=== PATIENT | male | born 1970 | race Caucasian/White ===

== ENCOUNTER 2023-02-13 10:32 | Outpatient (CLI) | payer SELFPAY | END 2023-02-13 10:33 | disposition home or self-care (01) | PROVIDERS: Visit Provider Internal Medicine | DX: S09.90XA Unspecified injury of head, initial encounter (principal); V47.1XXA Car passenger injured in collision with fixed or stationary object in nontraffic accident, initial encounter; Y92.481 Parking lot as the place of occurrence of the external cause | CPT/HCPCS: A0998 ==

== ENCOUNTER 2023-02-18 10:43 | Outpatient (CLI) | payer SELFPAY | END 2023-02-18 10:44 | disposition home or self-care (01) | LOC: AMB 02-20 06:33 | PROVIDERS: Visit Provider Family Medicine | DX: R42 Dizziness and giddiness (principal); G47.00 Insomnia, unspecified | CPT/HCPCS: A0425; A0429 ==

== ENCOUNTER 2023-02-18 11:03 | Emergency (ER) | payer SELFPAY ==
[2023-02-18] VITALS (12 sets, daily range): BP systolic 132–143; BP diastolic 87–99; PULSE 86–106; RESP 16; TEMP 36.7; O2SAT 97–99; BMI 23.1
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
[2023-02-18 11:45] LABS: Lactate* 2.6 mmol/L (0.5-1.9)
[2023-02-18 11:47] LABS: Basophils Absolute Auto 0.03 K/uL (0.00-0.30); Basophils Percent Auto 0.3 % (0.0-3.0); Eosinophils Absolute Auto 0.04 K/uL (0.00-0.50); Eosinophils Percent Auto 0.4 % (0.0-7.0); Hematocrit 42.1 % (37.0-53.0); Hemoglobin* 14.5 gm/dL (13.5-17.5); Immature Granulocytes Abs Auto 0.03 K/uL (0.00-0.30); Immature Granulocytes Pct Auto 0.3 %; Lymphocytes Percent Auto 15.4 % (20-44); Mean Corpuscular HGB Conc 34 gm/dL (32-36); Mean Corpuscular Hemoglobin 35 pg (26-34); Mean Corpuscular Volume 102 fL (80-100); Monocytes Percent Auto 11.8 % (0.0-11.0); Neutrophils Absolute Auto 7.18 K/uL (1.7-7.0); Neutrophils Percent Auto 71.8 % (42.0-72.0); Platelet Count* 84 K/uL (140-440); RDW Coefficient of Variation % 13.1 % (11.5-15.5); Red Blood Count 4.14 m/uL (4.30-5.90)
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
[2023-02-18 11:50] LABS: Slide Review Reflex No
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
[2023-02-18] MEDS: 0.9 % SODIUM CHLORIDE 1000 ml 1,000 ML IV ×2 (12:00→13:28)
[2023-02-18 12:02] LABS: Albumin* 4.4 g/dL (3.3-5.0)
[2023-02-18 12:03] LABS: Chloride* 98 mmol/L (96-114); Potassium* 4.6 mmol/L (3.6-5.1); Sodium* 133 mmol/L (135-149)
[2023-02-18 12:05] LABS: Aspartate Amino Transferase* 117 U/L (12-35); Bilirubin Total* 4.2 mg/dL (0.1-1.5); Carbon Dioxide* 22 mmol/L (20-32); Creatinine* 1.3 mg/dL (0.5-1.5); Estimated Glomerular Filt Rate 66 ml/min; Total Protein* 8.6 g/dL (6.0-8.3)
[2023-02-18 12:06] LABS: Alanine Aminotransferase* 46 U/L (4-50); Alkaline Phosphatase* 195 U/L (40-150); Blood Urea Nitrogen* 20 mg/dL (7-30); Calcium* 8.6 mg/dL (8.4-10.6); Glucose* 118 mg/dL (60-115)
[2023-02-18 12:09] LABS: Ethanol* < 0.01 % (0.01-0.03)
[2023-02-18 12:11] LABS: Magnesium* 0.8 mg/dL (1.5-2.6)
[2023-02-18] MEDS: PHENobarbitaL 130 MG in 0.9 % SODIUM CHLORIDE 100 ml 100 ML 204 MG IVPB ×2 (12:22→13:51)
[2023-02-18] MEDS: FOLIC ACID 1 MG TABLET PO (12:22)
[2023-02-18] MEDS: THIAMINE 100 MG TABLET PO (12:22)
[2023-02-18] MEDS: MAGNESIUM IV 2 GM/50 ML PIGGYBACK IVPB (13:28)
--- NOTE | 2023-02-18 14:31 | ED.NURSE ---
Pt walking to the bathroom with a steady gait, speaking in coherent sentences.
[2023-02-18 14:47] LABS: Amphetamine Screen Urine Negative (Negative); Barbiturate Screen Urine POSITIVE (Negative); Benzodiazepines Screen Urine Negative (Negative); Cannabinoid Screen Urine Negative (Negative); Cocaine Screen Urine Negative (Negative); Methadone Screen Urine Negative (Negative); Methamphetamines Screen Urine Negative (Negative); Opiate Screen Urine Negative (Negative); Oxycodone Screen Urine Negative (Negative); Phencyclidine Screen Urine Negative (Negative); Tricyclic Antidepressant Urine Negative (Negative)
== END 2023-02-18 16:24 | disposition home or self-care (01) ==
PROVIDERS: Emergency Provider Emergency Medicine
DX: F07.81 Postconcussional syndrome (principal); F10.239 Alcohol dependence with withdrawal, unspecified; E83.42 Hypomagnesemia; V46.1XXA Car passenger injured in collision with other nonmotor vehicle in nontraffic accident, initial encounter
CPT/HCPCS: 36415; 70450; 72100; 72125; 80053; 80306; 82077; 83605; 83735; 85025; 93005; 96365; 96366; 99284; 99285; A9270; J2560; J3475; J7030

== ENCOUNTER 2023-02-19 01:46 | Outpatient (CLI) | payer SELFPAY | END 2023-02-19 01:47 | disposition home or self-care (01) | LOC: AMB 03-02 13:50 | PROVIDERS: Visit Provider Emergency Medicine | DX: R44.1 Visual hallucinations (principal) | CPT/HCPCS: A0425; A0429 ==

== ENCOUNTER 2023-02-19 02:07 | Inpatient (IN) | payer SELFPAY ==
[2023-02-19] VITALS (54 sets, daily range): BP systolic 83–178; BP diastolic 56–119; PULSE 96–134; RESP 13–20; TEMP 36.6–37.1; O2SAT 94–100; BMI 23.7; BMI 22.6
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
[2023-02-19 02:50] LABS: Basophils Absolute Auto 0.05 K/uL (0.00-0.30); Basophils Percent Auto 0.7 % (0.0-3.0); Eosinophils Absolute Auto 0.06 K/uL (0.00-0.50); Eosinophils Percent Auto 0.8 % (0.0-7.0); Hematocrit 36.5 % (37.0-53.0); Hemoglobin* 12.5 gm/dL (13.5-17.5); Immature Granulocytes Abs Auto 0.01 K/uL (0.00-0.30); Immature Granulocytes Pct Auto 0.1 %; Lymphocytes Percent Auto 17.2 % (20-44); Mean Corpuscular HGB Conc 34 gm/dL (32-36); Mean Corpuscular Hemoglobin 36 pg (26-34); Mean Corpuscular Volume 105 fL (80-100); Monocytes Percent Auto 13.4 % (0.0-11.0); Neutrophils Percent Auto 67.8 % (42.0-72.0); Platelet Count* 78 K/uL (140-440); RDW Coefficient of Variation % 13.4 % (11.5-15.5); Red Blood Count 3.49 m/uL (4.30-5.90); White Blood Count* 7.67 K/uL (4.50-11.00)
[2023-02-19 02:51] LABS: Slide Review Reflex No
[2023-02-19 03:02] LABS: Albumin* 3.8 g/dL (3.3-5.0)
[2023-02-19] MEDS: PHENobarbitaL 260 MG in 0.9 % SODIUM CHLORIDE 100 ml 100 ML 208 MG IVPB ×3 (03:02→09:40)
[2023-02-19] MEDS: OMEPRAZOLE 20 MG CAPSULE DR PO (03:02)
[2023-02-19 03:03] LABS: Chloride* 102 mmol/L (96-114); Potassium* 3.6 mmol/L (3.6-5.1); Sodium* 136 mmol/L (135-149)
[2023-02-19] MEDS: FOLIC ACID 1 MG TABLET PO ×2 (03:03→07:50)
[2023-02-19] MEDS: THIAMINE 100 MG TABLET PO (03:03)
[2023-02-19 03:05] LABS: Alkaline Phosphatase* 182 U/L (40-150); Aspartate Amino Transferase* 101 U/L (12-35); Bilirubin Total* 3.3 mg/dL (0.1-1.5); Blood Urea Nitrogen* 24 mg/dL (7-30); Carbon Dioxide* 23 mmol/L (20-32); Creatinine* 1.4 mg/dL (0.5-1.5); Est. Creatinine Clearance* 66.98; Estimated Glomerular Filt Rate 60 ml/min; Total Protein* 7.4 g/dL (6.0-8.3)
[2023-02-19 03:06] LABS: Alanine Aminotransferase* 42 U/L (4-50); Calcium* 7.9 mg/dL (8.4-10.6); Glucose* 84 mg/dL (60-115); Magnesium* 1.1 mg/dL (1.5-2.6)
[2023-02-19 03:07] LABS: Ethanol* < 0.01 % (0.01-0.03)
[2023-02-19] MEDS: MAGNESIUM IV 4 GM/100 ML PIGGYBACK IVPB (03:37)
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
[2023-02-19] MEDS: LORazepam 1 MG TABLET PO ×3 (05:56→07:51)
[2023-02-19] MEDS: LACTATED RINGERS 1000 ML 1,000 ML 125 ML IV (06:16)
[2023-02-19] MEDS: NICOTINE 14 mg PATCH 1 PATCH TRANSDERMA (06:18)
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
[2023-02-19] MEDS: MULTIVITAMIN/MINERALS 1 TABLET 1 TAB PO (07:50)
[2023-02-19 07:53] LABS: Cannabinoid Screen Urine POSITIVE (Negative); Cocaine Screen Urine Negative (Negative); Methamphetamines Screen Urine Negative (Negative); Opiate Screen Urine Negative (Negative); Phencyclidine Screen Urine Negative (Negative)
[2023-02-19 07:54] LABS: Amphetamine Screen Urine Negative (Negative); Benzodiazepines Screen Urine POSITIVE (Negative); Methadone Screen Urine Negative (Negative); Tricyclic Antidepressant Urine Negative (Negative)
[2023-02-19 07:55] LABS: Barbiturate Screen Urine POSITIVE (Negative); Oxycodone Screen Urine Negative (Negative)
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
[2023-02-19] MEDS: THIAMINE 250 MG in 0.9 % SODIUM CHLORIDE 100 ml 100 ML 102.5 MG IVPB (09:00)
[2023-02-19] MEDS: LORazepam 2 MG/ML inj IVP (09:06)
[2023-02-19] MEDS: KETAMINE HCL 100 MG/ML inj 225 MG IM (09:23)
[2023-02-19] MEDS: PROPOFOL 10 MG/ML INJ 200 MG IVP (09:46)
[2023-02-19] MEDS: SUCCINYLCHOLINE 20 MG/ML INJ 40 MG IVP (09:46)
--- NOTE | 2023-02-19 09:49 | XR_ITS ---
Patient: ROBBIN VO Facility:?[facility] Patient ID:?[id number] Site Patient ID:?[id number]. Site :?[id number] Study:?XRay-Chest PORTABLE-02/19/2023 10:01:37 AM Ordering Physician:?Ervin Barbosa Final Report: INDICATION: ?Confirm ETT placement?. TECHNIQUE: Chest 1 views. COMPARISON: None. FINDINGS: The study is limited in that the right lateral costophrenic angle is not included on the image. The tip of an endotracheal tube is identified overlying the tracheal air column ending 4.7 cm above the tristan, in good position. Cardiovasculature and mediastinum: Heart size and vasculature are normal in caliber and appearance. Lungs and pleural spaces: Lungs are clear. No sign of infiltrate or mass. No sign of pleural effusion. No pneumothorax. Bones and soft tissues: No significant findings. IMPRESSION: The tip of an endotracheal tube is identified overlying the tracheal air column ending 4.7 cm above the tristan, in good position. Dictated by Yuriy Wong MD @ 02/19/2023 10:04:02 AM Signed by:?Yuriy Wong MD @02/19/2023 10:04:02 AM (Electronic Signature)
[2023-02-19] MEDS: propofoL 1,000 MG/100 ML ML 45.31 MG IVPB (09:55)
[2023-02-19] MEDS: PROPOFOL 10 MG/ML INJ 50 MG IVP (09:57)
[2023-02-19 10:01] LABS: Basophils Absolute Auto 0.03 K/uL (0.00-0.30); Basophils Percent Auto 0.3 % (0.0-3.0); Eosinophils Absolute Auto 0.12 K/uL (0.00-0.50); Eosinophils Percent Auto 1.3 % (0.0-7.0); Hemoglobin* 12.4 gm/dL (13.5-17.5); Immature Granulocytes Abs Auto 0.01 K/uL (0.00-0.30); Immature Granulocytes Pct Auto 0.1 %; Lymphocytes Absolute Auto 2.46 K/uL (0.90-2.90); Lymphocytes Percent Auto 26.8 % (20-44); Mean Corpuscular HGB Conc 34 gm/dL (32-36); Mean Corpuscular Hemoglobin 35 pg (26-34); Mean Corpuscular Volume 106 fL (80-100); Monocytes Percent Auto 13.8 % (0.0-11.0); Neutrophils Absolute Auto 5.28 K/uL (1.7-7.0); Neutrophils Percent Auto 57.7 % (42.0-72.0); Platelet Count* 82 K/uL (140-440); RDW Coefficient of Variation % 13.3 % (11.5-15.5); White Blood Count* 9.17 K/uL (4.50-11.00)
[2023-02-19 10:02] LABS: Slide Review Reflex No
[2023-02-19 10:06] LABS: HCO3 VBG 20 mmol/L (21-28); PCO2 VBG 44 mmHG (40-50); pH VBG 7.268 (7.32-7.43)
[2023-02-19] MEDS: fentaNYL 100 MCG/2 ML inj IVP (10:12)
--- NOTE | 2023-02-19 10:23 | PC.NURSE ---
Addendum entered by Irma Osman RN 02/19/23 13:37: typing error combativewith staff Original Note: Pt hallucinating and speech is rambling incoherently at initial assessment. Pt received IV phenobarbitol infusion and 60% of IV thiamine infusion. Pt had 2mg of oral ativan followed by 4 mg of IV ativan approximately 1 hour later. Pt very impulsive and compative with staff members, unable to distract patient who is fighting care and trying to get up out of bed, security notified and Rosalio Scott is present at bedside with general road supervisor Brown Bolton. Dr. Mueller and Dr. Ward notified of change in pt condition. Ketamine 225 mg IM given. Labs drawn by Brown during IV start #22 to left forearm, pt had pulled his second site out with restless activity. Anesthesia called for propofol and intubation. OG inserted by Marlene TREJO and blue catheter inserted by same RN to DD. Plan medical transfer when bed available. Second dose of IV phenobarbitol infused. Anesthesiologist monitoring pt at bedside.
[2023-02-19 10:38] LABS: Albumin* 3.9 g/dL (3.3-5.0); Chloride* 103 mmol/L (96-114)
[2023-02-19 10:39] LABS: Potassium* 3.5 mmol/L (3.6-5.1); Sodium* 135 mmol/L (135-149)
[2023-02-19 10:41] LABS: Alkaline Phosphatase* 199 U/L (40-150); Aspartate Amino Transferase* 101 U/L (12-35); Bilirubin Total* 3.1 mg/dL (0.1-1.5); Carbon Dioxide* 18 mmol/L (20-32); Est. Creatinine Clearance* 91.26; Estimated Glomerular Filt Rate 90 ml/min; Total Protein* 7.4 g/dL (6.0-8.3)
[2023-02-19 10:42] LABS: Alanine Aminotransferase* 41 U/L (4-50); Blood Urea Nitrogen* 22 mg/dL (7-30); Calcium* 7.7 mg/dL (8.4-10.6); Glucose* 92 mg/dL (60-115); Magnesium* 2.1 mg/dL (1.5-2.6)
--- NOTE | 2023-02-19 11:08 | PC.NURSE ---
Report called to [facility] @ Cardiac [facility]U bed [id number] assigned and accepting MD Doctor Madrid.
--- NOTE | 2023-02-19 11:10 | REH.PT ---
PT eval held today as pt is not appropriate for therapy, per .
--- NOTE | 2023-02-19 12:39 | PM.ANBPRC ---
[facility] Medical History (Updated 02/19/23 @ 11:02 by Paige Ward MD) Essential hypertension ?I10 - Essential (primary) hypertension (ICD-10) Concussion ?S06.0XAA - Concussion with loss of consciousness status unknown, initial encounter (ICD-10) Surgical History (Updated 02/19/23 @ 08:22 by Paige Ward MD) History of surgery on lower extremity ?Z98.890 - Other specified postprocedural states (ICD-10) History of hydrocelectomy ?Z98.890 - Other specified postprocedural states (ICD-10) Social History What is your current living situation?: I presently have a place to live Problems where you live: no known problems Problems where you live details: n/a In the past 12 months, utilities in danger of being shut off: no In the past 12 mos, have been you worried that your food would run out before you had money to buy more?: never true In the past 12 mos, the food you bought just didn't last and you didn't have money to buy more?: never true Highest level of school completed/degree received: high school graduate Smoking Status: Current every day smoker What tobacco products do you use: cigarettes How often do you have a drink containing alcohol: 4 or more times a week Alcohol type: hard liquor Alcohol type details: vodka How many standard drinks containing alcohol do you have on a typical day: 10 or more How often do you have six or more drinks on one occasion: Daily or almost daily AUDIT-C Alcohol total score: 12 Non-prescribed substance use: marijuana (any form) Caffeine: Yes How often does anyone, including family, friends and others, physically hurt you: rarely How often does anyone, including family, friends and others, insult or talk down to you: rarely How often does anyone, including family, friends and others, threaten you with harm: rarely How often does anyone, including family, friends and others, scream or curse at you: rarely service: No Meds Home Medications and Allergies Allergies Allergy/AdvReac Type Severity Reaction Status Date / Time No Known Drug Allergies Allergy Verified 02/18/23 11:22 Results Labs Labs: Laboratory Results - last 24 hr 02/19/23 02/19/23 02/19/23 02:43 07:17 09:48 WBC 7.67 9.17 RBC 3.49 L 3.50 L Hgb 12.5 L 12.4 L Hct 36.5 L 37.0 MCV 105 H 106 H MCH 36 H 35 H MCHC 34 34 RDW Coeff of Celena 13.4 13.3 Plt Count 78 L 82 L Neut % (Auto) 67.8 57.7 Lymph % (Auto) 17.[address] [place] % (Auto) 13.4 H 13.8 H Eos % (Auto) 0.8 1.3 Baso % (Auto) 0.7 0.3 Neut # (Auto) 5.20 5.28 Lymph # (Auto) 1.[address] [place] # (Auto) 1.00 H 1.30 H Eos # (Auto) 0.06 0.12 Baso # (Auto) 0.05 0.03 Abs Immat Gran (auto) 0.01 0.01 Imm/Tot Granulo (auto) 0.1 0.1 VBG pH 7.268 L VBG pCO2 44 VBG pO2 102.0 H VBG HCO3 20 L Sodium 136 135 Potassium 3.6 3.5 L Chloride 102 103 Carbon Dioxide 23 18 L BUN 24 22 Creatinine 1.4 1.0 Estimated Creat Clear 66.98 91.26 Estimated GFR 60 90 Glucose 84 92 Calcium 7.9 L 7.7 L Magnesium 1.1 L 2.1 Total Bilirubin 3.3 H 3.1 H AST 101 H 101 H ALT 42 41 Alkaline Phosphatase 182 H 199 H Total Protein 7.4 7.4 Albumin 3.8 3.9 Urine Opiates Screen Negative Ur Oxycodone Screen Negative Urine Methadone Screen Negative Ur Propoxyphene Screen Negative Ur Barbiturates Screen POSITIVE A U Tricyclic Antidepress Negative Ur Phencyclidine Scrn Negative Ur Amphetamines Screen Negative U Methamphetamines Scrn Negative U Benzodiazepines Scrn POSITIVE A Urine Cocaine Screen Negative U Marijuana (THC) Screen POSITIVE A Ur Drug Screen Comment See Note Ethyl Alcohol < 0.01 L Vital Signs Vital Signs: Last Vital Signs Temp 98 F 02/19/23 07:30 Pulse 96 02/19/23 11:45 Resp 13 02/19/23 11:50 BP 105/74 02/19/23 11:41 Pulse Ox 100 08/09/23 11:45 O2 Del Method Intubated 02/19/23 10:28 Weight: 75.523 kg Height: 182.88 cm Anesthesia Procedures Airway [facility] Urgency: emergent Date: 02/19/23 Time: 09:47 Anesthesiologist: [employer] EFFICIENCY MANAGER: Flori Preferred by: MARY Preanesthetic Checklist: IV checked, risks and benefits discussed and monitors and equipment checked Difficult Airway: No Indications for Airway Management: airway protection Spontaneous Ventilation: present Sedation Level: deep Preoxygenated: Yes MILS Maintained Throughout: Yes Mask Difficulty Assessment: 0 - not attempted Final Airway Details: Elective GlideScope intubation with 7.5 ETT, 24 cm at the lip. ETT yung in place. Propofol 200 mg, Anectine 40 mg. Final Airway Type: endotracheal airway Number of Attempts at Approach: 1 Dentition Unchanged: Yes
--- NOTE | 2023-02-19 12:41 | PC.NURSE ---
0940 patient restless, attempting to get out of bed, disoriented, 4 staff at bedside.? 0943 anesthesia to bedside.? 0946 Propofol 200mg IVP & 40 Succinylcholine 40mg ? 0948 ETT 7.5 23 a lip, 2nd IV #22 Left FA. + breath sounds.? 0952 beside chest x-ray? 0955 100mcg/kg/min Propofol drip. Order Dr. Ward OG & Bowman Catheter.? Vent Settings Tidal Volume 450 Peed 5 and O2 50%? 0957 Propofol 50mg IVP. ? 1000 OG Placed @ 63. + placement via auscultation?for air over stomach.? 1004 Propofol drip increased 150mcg/kg/min? 1012 Fentanyl IVP 200mg. Propofol dip decreased 110mcg/kg/min RASS Score -4? 1017 Bowman 10 Polish. Balloon filled with 5cc. +return of orange colored urine.? 1019 Propofol drip decreased 100mcg/kg/min? 1027 Propofol drip decreased 75mcg/kg/min? 1110 Versed 2mg IVP? 1130 Patient present at bedside. ? 1140 Propofol IVP 30mg? Patient left via EMS.?
[2023-02-19] MEDS: propofoL 1,000 MG/100 ML ML 33.99 MG IVPB (12:52)
[2023-02-19] MEDS: MIDAZOLAM HCL 1 MG/ML inj 2 MG IVP (12:57)
[2023-02-19] MEDS: PROPOFOL 10 MG/ML INJ 30 MG IVP (12:58)
--- NOTE | 2023-02-19 13:23 | PC.NURSE ---
Discharged via stretcher @ 1156 am per EMS transport to [facility] at 11:56 am.
--- NOTE | 2023-02-19 13:32 | PC.NURSE ---
Tele sinus tachycardia, ET tube size 7.5 at 24 cm placement confirmed via CXR. Bowman size 10 lux[place]bourgish inserted draining light duran urine, OG placed at 63 cm confirmed with syringe air flush, Versed 2 mg given per anesthesia prior to transfer to [facility].
== END 2023-02-19 11:56 | disposition short-term general hospital (02) | DRG 897 ==
LOC: ED 03:51 → MEDSURG 04:15
PROVIDERS: Family Medicine; Admitting Provider Family Medicine; Emergency Provider Family Medicine; Visit Provider Family Medicine
DX: F10.231 Alcohol dependence with withdrawal delirium (principal); E51.2 Wernicke's encephalopathy; E83.42 Hypomagnesemia; R00.0 Tachycardia, unspecified; F17.210 Nicotine dependence, cigarettes, uncomplicated; Y90.0 Blood alcohol level of less than 20 mg/100 ml; F10.251 Alcohol dependence with alcohol-induced psychotic disorder with hallucinations; R45.1 Restlessness and agitation; I10 Essential (primary) hypertension
CPT/HCPCS: 31500; 36415; 51701; 71045; 80053; 80306; 82077; 82803; 83735; 85025; 93005; 94761; 99284; G0378; A9153; A9270; J0330; J2060; J2250; J2560; J2704; J3010; J3411; J3475; J3490; J7120; S4990

== ENCOUNTER 2023-02-19 11:33 | Outpatient (CLI) | payer SELFPAY | END 2023-02-19 11:34 | disposition home or self-care (01) | PROVIDERS: Visit Provider Family Medicine | DX: F10.931 Alcohol use, unspecified with withdrawal delirium (principal) | CPT/HCPCS: A0425; A0434 ==

== ENCOUNTER 2024-09-02 10:00 | Outpatient (RCR) | payer MEDICAID, SELFPAY | END 2024-12-22 15:33 | disposition home or self-care (01) | PROVIDERS: Visit Provider Family Medicine | DX: M54.9 Dorsalgia, unspecified (principal); Z51.89 Encounter for other specified aftercare | CPT/HCPCS: 97110; 97140; 97162 ==